=== PATIENT | male | born 1950 | race Caucasian/White ===

== ENCOUNTER 2022-02-02 00:56 | Inpatient (IN) | payer MEDICARE ==
[~2022-02-02] VITALS: Ht 182.9 cm; Wt 89.8 kg
[2022-02-02] MEDS ORDERED: ASPIRIN 325 MG TABLET ONE (01:06)
[2022-02-02] MEDS ORDERED: NITROGLYCERIN 0.4 MG/TAB BOTTLE ONE ×2 (01:06→11:18)
--- NOTE | 2022-02-02 01:12 | NUR ---
PRESENTED TO THE ER FOR C/O UPPER CP AND NECK PAIN FOR THE PAST 2 HOURS. PT ALSO REPORTED "SHIVERING". 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 DENIED FEVER, N/V OR COUGH. PT WAS PLACED IN BED 7 ER ON MONITOR.
--- NOTE | 2022-02-02 01:15 | NUR ---
BUTTON MACHINE OPERATOR AT PT'S BEDSIDE
--- NOTE | 2022-02-02 01:24 | NUR ---
IV #20G S/L BLOOD COLLECTED AND SENT TO LAB
[2022-02-02] MEDS ORDERED: ASPIRIN 81 MG TAB.CHEW PO ONE (01:30)
[2022-02-02] MEDS ORDERED: NITROGLYCERIN 0.4 MG/TAB BOTTLE SL ONE ×2 (01:30→12:00)
[2022-02-02 01:53] LABS: BASOPHILS # (AUTO) 0.1 K/uL (0.0-0.2); BASOPHILS % (AUTO) 0.6 % (0.0-2.0); EOSINOPHILS % (AUTO) 1.1 % (0.0-6.0); HEMATOCRIT 49 % (39-51); HEMOGLOBIN 16.6 g/dL (13.5-17.5); LYMPHOCYTES # (AUTO) 1.3 K/uL (0.8-4.8); LYMPHOCYTES % (AUTO) 14.3 % (20.0-44.0); MEAN CORPUSCULAR HGB CONC 34 g/dl (31.0-36.0); MEAN CORPUSCULAR VOLUME 93 fL (80-96); MONOCYTES # (AUTO) 0.6 K/uL (0.1-1.30); MONOCYTES % (AUTO) 6.4 % (2.0-12.0); NEUTROPHILS # (AUTO) 6.9 K/uL (1.8-8.9); NEUTROPHILS % (AUTO) 77.6 % (43.0-81.0); PLATELET COUNT (AUTO) 212 K/uL (150-450); RED BLOOD CELL COUNT(AUTO) 5.28 MIL/uL (4.5-6.0); WHITE BLOOD COUNT (AUTO) 8.9 K/uL (4.3-11.0)
[2022-02-02 01:59] LABS: CARBON DIOXIDE 37 mmol/L (21-32); CHLORIDE 97 mmol/L (98-107); CREATININE 1.2 mg/dL (0.6-1.3); GLUCOSE 90 mg/dL (74-106); POTASSIUM 3.3 mmol/L (3.5-5.1); SODIUM SERUM 138 mmol/L (136-145); UREA NITROGEN, BLOOD 13 mg/dL (7-18)
[2022-02-02] MEDS ORDERED: MORPHINE SULFATE INJ 4 MG/ML DISP.SYRIN ONE (02:04)
[2022-02-02] MEDS ORDERED: MORPHINE SULFATE INJ 2 MG/ML DISP.SYRIN IV ONE (02:30)
--- NOTE | 2022-02-02 02:50 | NUR ---
PT AMBULATORY WITH STEADY GAIT TO RESTROOM; ADLS DONE.
--- NOTE | 2022-02-02 02:51 | NUR ---
MRSA SWAB COLLECTED AND SENT TO LAB
[2022-02-02] MEDS ORDERED: ONDANSETRON HCL/PF 4 MG/2 ML VIAL IVP PRN (03:30)
[2022-02-02] MEDS ORDERED: POTASSIUM CHLORIDE 20 MEQ TAB.PRT.SR PO ONE (03:30)
[2022-02-02] MEDS ORDERED: MORPHINE SULFATE INJ 2 MG/ML DISP.SYRIN IV PRN (03:30)
[2022-02-02] MEDS ORDERED: ENOXAPARIN SODIUM 40 MG/0.4 ML DISP.SYRIN SQ SCH ×2 (03:30→03:50)
[2022-02-02] MEDS ORDERED: ACETAMINOPHEN 325 MG TABLET PO PRN (03:30)
--- NOTE | 2022-02-02 03:42 | NUR ---
TELE 315-
[2022-02-02] MEDS ORDERED: AMLO-213 PO (03:47)
[2022-02-02] MEDS ORDERED: DABI150C PO (03:47)
--- NOTE | 2022-02-02 03:50 | NUR ---
REPORT GIVEN TO HOOD Del Rio RN FOR CORY
--- NOTE | 2022-02-02 04:18 | NUR ---
PT TRANSFERRED TO 315-1 VIA ACLS PROTOCOL. ALL BELONGINGS WITH PT. VSS. PT TOLERATED TRANSER WELL.
--- NOTE | 2022-02-02 05:03 | NUR ---
RN RECEIVING PATIENT FROM ER NOTE PATIENT ARRIVED TO UNIT VIA [facility] FROM ER STABLE. PATIENT IS A/OX4. NO S/S OF DISTRESS, BREATHING WITHOUT DIFFICULTY ON ROOM AIR. NO PAIN NOTED. LAC #20 SL INTACT AND PATENT. TELE READS AFIB 80. SAFETY MEASURES IN PLACE: BED LOCKED AND AT LOWEST POSITION, RAILS UP X2, CALL LENZ WITHIN REACH. PATIENT ARRIVED TO THE UNIT STABLE; VS WNL. PATIENT IS FULLY AMBULATORY - WALKED TO HIS ASSIGNED BED. PATIENT WAS ORIENTED TO THE UNIT. PATIENT GIVEN CALL LENZ AND INSTRUCTED ON ITS USE. BELONGINGS ACCOUNTED FOR, LOGGED INTO SHEET, AND PLACED IN CHART. TELE APPLIED TO PATIENT. PATIENT INSTRUCTED ON IMPORTANCE OF TELE BOX AND TELE MONITORING. WILL CONTINUE TO MONITOR PATIENT. Addendum: 02/02/22 at 0507 by HOOD BRAY RN PATIENT ARRIVED AT 0415
[2022-02-02 05:29] VITALS: BP 120/83
[2022-02-02 06:06] LABS: CALCIUM, SERUM 8.6 mg/dL (8.5-10.1); MAGNESIUM 2.5 mg/dL (1.8-2.4); POTASSIUM 3.6 mmol/L (3.5-5.1)
[2022-02-02 06:12] VITALS: BP 120/85
--- NOTE | 2022-02-02 06:41 | NUR ---
RN CLOSING NOTE PATIENT ASLEEP IN BED. A/OX4. NO S/S OF DISTRESS, BREATHING WITHOUT DIFFICULTY ON ROOM AIR. LAC #20 SL INTACT AND PATENT. TELE READS AFIB 80. SAFETY MEASURES IN PLACE: BED LOCKED AND AT LOWEST POSITION, RAILS UP X2, CALL LENZ WITHIN REACH. WILL ENDORSE TO NEXT SHIFT FOR CORY.
--- NOTE | 2022-02-02 07:44 | NUR ---
RN CLOSING NOTE PATIENT AWAKE IN BED. A/OX4. NO S/S OF DISTRESS, BREATHING WITHOUT DIFFICULTY ON ROOM AIR. LAC #20 SL INTACT AND PATENT. TELE READS AFIB 85. SAFETY MEASURES IN PLACE: BED LOCKED AND AT LOWEST POSITION, RAILS UP X2, CALL LENZ WITHIN REACH. WILL CONTINUE TO MONITOR.
[2022-02-02 08:00] VITALS: BP 113/70
[2022-02-02] MEDS ORDERED: OMEP20CA15 PO (08:32)
[2022-02-02] MEDS ORDERED: TAMS-12 PO (08:32)
[2022-02-02] MEDS ORDERED: TRIA1CAP20 PO (08:32)
[2022-02-02] MEDS ORDERED: VALA500T40 PO (08:32)
[2022-02-02] MEDS ORDERED: ASPIRIN 81 MG TAB.CHEW PO SCH (09:00)
[2022-02-02] MEDS: TAMSULOSIN 0.4 MG CAP.SR.24H PO SCH ×2 (09:53→16:36)
[2022-02-02] MEDS ORDERED: PANTOPRAZOLE 40 MG TABLET.DR PO SCH (10:00)
[2022-02-02] MEDS ORDERED: VALACYCLOVIR HCL 500 MG TABLET PO SCH (10:00)
[2022-02-02] MEDS ORDERED: AMLODIPINE BESYLATE 10 MG TABLET PO SCH (10:00)
[2022-02-02] MEDS: METOPROLOL TARTRATE 50 MG TABLET PO SCH ×2 (10:32→16:40)
[2022-02-02] MEDS: DABIGATRAN ETEXILATE MESYLATE 75 MG CAPSULE PO SCH ×2 (10:56→16:38)
[2022-02-02] MEDS ORDERED: IOHEXOL-350 100 ML VIAL IV ONE (11:18)
[2022-02-02] MEDS ORDERED: IV NS 0.9% 250 ML IV ONE (11:19)
[2022-02-02] MEDS ORDERED: CT SWABBABLE VALVE TRANS SET 1 EA INFUS.SET MC ONE (11:19)
[2022-02-02] MEDS ORDERED: METOPROLOL TARTRATE INJ 5 MG/5 ML AMPUL ONE (11:19)
[2022-02-02] MEDS ORDERED: METOPROLOL TARTRATE INJ 5 MG/5 ML AMPUL IVP PRN (12:00)
[2022-02-02 16:00] VITALS: BP 112/54
[2022-02-02 16:40] VITALS: BP 112/60
[2022-02-02] MEDS ORDERED: HYDR-3972 PO (16:57)
--- NOTE | 2022-02-02 18:30 | NUR ---
DISCHARGED NOTE. PATIENT DISCHARGED TO HOME ACCOMPANIED BY DAUGHTER. A/O X4. VITALS TAKEN,STABLE AND RECORDED. ON RA TOLERATING WELL. NO SIGNS OF RESPIRATORY DISTRESS NOTED. IV LINE REMOVED WITH NO SIGNS OF BLEEDING. ALL BELONGINGS ACCOUNTED TO THE PATIENT. HOME INSTRUCTION GIVEN TO PATIENT, VERBALIZED UNDERSTANDING. LEFT THE UNIT VIA WHEELCHAIR. DISCHARGED.
[2022-02-03] MEDS ORDERED: ENOXAPARIN SODIUM 40 MG/0.4 ML DISP.SYRIN SQ SCH (09:00)
== END 2022-02-02 18:15 | disposition home or self-care (01) | DRG 206 ==
LOC: ER 00:58 → TELE 03:44
PROVIDERS: ADMIT Nurse Practitioner Acute Care; ATTEND Nurse Practitioner Acute Care
DX: M94.0 Chondrocostal junction syndrome [Tietze] (principal); I48.20 Chronic atrial fibrillation, unspecified; I10 Essential (primary) hypertension; I25.10 Atherosclerotic heart disease of native coronary artery without angina pectoris; E78.5 Hyperlipidemia, unspecified; K21.9 Gastro-esophageal reflux disease without esophagitis; N40.0 Benign prostatic hyperplasia without lower urinary tract symptoms; R19.04 Left lower quadrant abdominal swelling, mass and lump; Z20.822 Contact with and (suspected) exposure to COVID-19
CPT/HCPCS: 36415; 71045-TC; 75574; 80048-TC; 80061-TC; 83735-TC; 84100-TC; 84484-TC; 85025-TC; 87081-TC; 93307-TC; C9803; G0378; J1650; J2270; J3490; J7050; Q9967